=== PATIENT | male | born 1985 | race Caucasian/White ===

== ENCOUNTER 2018-06-21 15:26 | Emergency (ER) | payer SELFPAY ==
[2018-06-21] MEDS ORDERED: Lidocaine 1% with EPINEPHrine 1:100,000 10 ML MDV INJECT ONE (15:57)
[2018-06-21] MEDS ORDERED: cefTRIAXone 1,000 MG in Lidocaine 1% 4 ML IM ONE (15:57)
--- NOTE | 2018-06-21 15:57 | EDM.PDOC ---
ED HPI GENERAL MEDICAL PROBLEM - General Chief Complaint: Skin Complaint Stated Complaint: POSSIBLE STAPH INFECTION Time Seen by Provider: 06/21/18 15:56 Source of Information: Reports: Patient - History of Present Illness INITIAL COMMENTS - FREE TEXT/NARRATIVE: HISTORY AND PHYSICAL: History of present illness: []Patient presents with a small abscess in his left axilla approximately 3 cm x 1 cm nontender no fever nausea vomiting chills sweats Review of systems: As per history of present illness and below otherwise all systems reviewed and negative. Past medical history: As per history of present illness and as reviewed below otherwise noncontributory. Surgical history: As per history of present illness and as reviewed below otherwise noncontributory. Social history: No reported history of drug or alcohol abuse. Family history: As per history of present illness and as reviewed below otherwise noncontributory. Physical exam: HEENT: Atraumatic, normocephalic, pupils reactive, negative for conjunctival pallor or scleral icterus, mucous membranes moist, throat clear, neck supple, nontender, trachea midline. Lungs: Clear to auscultation, breath sounds equal bilaterally, chest nontender. Heart: S1S2, regular, negative for clicks, rubs, or JVD. Abdomen: Soft, nondistended, nontender. Negative for masses or hepatosplenomegaly. Negative for costovertebral tenderness. Pelvis: Stable nontender. Genitourinary: Deferred. Rectal: Deferred. Extremities: Atraumatic, negative for cords or calf pain. Neurovascular unremarkable. Neuro: Awake, alert, oriented. Cranial nerves II through XII unremarkable. Cerebellum unremarkable. Motor and sensory unremarkable throughout. Exam nonfocal. Diagnostics: [Wound culture ] Therapeutics: [ gram Rocephin lidocaine incision and drainage-copious purulent drainage obtained are culture Wound prepped and cleanse Drainage with 11 blade Packed after flushing with normal saline , Order inch iodoform Recheck 48 hours Bactrim [place] ] Impression: [ abscess left axilla incision and drainage ] Definitive disposition and diagnosis as appropriate pending reevaluation and review of above. left armpit Pain Score (Numeric/FACES): 8 - Related Data Allergies Allergy/AdvReac Type Severity Reaction Status Date / Time No Known Allergies Allergy Verified 06/21/18 16:00 Home Meds: Home Meds . [No Known Home Meds] 06/21/18 [History] ED ROS GENERAL - Review of Systems Review Of Systems: See Below ED EXAM, SKIN/RASH Exam: See Below Course - Vital Signs Last Recorded V/S: Last Vital Signs Temp 96.8 F 06/21/18 16:01 Pulse 78 06/21/18 16:01 Resp 18 06/21/18 16:01 BP 119/70 06/21/18 16:01 Pulse Ox 98 06/21/18 16:01 - Orders/Labs/Meds Orders: Active Orders 24 hr Category Date Time Status CULTURE WOUND [RM] Stat Lab 06/21/18 16:22 Ordered Meds: Medications Discontinued Medications Generic Name Dose Route Start Last Admin Trade Name Freq PRN Reason Stop Dose Admin Hydrocodone Bitart/Acetaminophen 1 tab 06/21/18 16:22 [place] 325-5 Mg PO 06/21/18 16:23 ONETIME ONE Ceftriaxone Sodium 1,000 mg/ 4 mls @ 4 mls/sec 06/21/18 15:57 Lidocaine HCl IM 06/21/18 15:58 ONETIME ONE Lidocaine/Epinephrine 10 ml 06/21/18 15:57 Xylocaine 1% With Epinephrine 1:100,000 INJECT 06/21/18 15:58 ONETIME ONE Lidocaine/Epinephrine Confirm 06/21/18 16:07 Xylocaine 1% With Epinephrine 1:100,000 Administered 06/21/18 16:08 Dose 20 ml .ROUTE .STK-MED ONE Departure - Departure Time of Disposition: 16:25 Disposition: Home, Self-Care 01 Condition: Good Clinical Impression: Abscess, Cellulitis - Discharge Information Referrals: PCP,None [Primary Care Provider] - Forms: ED Department Discharge Additional Instructions: Medication as prescribed Return if symptoms persist or worsen Return to ER for recheck and wound packing in 48 hours The following information is given to patients seen in the emergency department who are being discharged to home. This information is to outline your options for follow-up care. We provide all patients seen in our emergency department with a follow-up referral. The need for follow-up, as well as the timing and circumstances, are variable depending upon the specifics of your emergency department visit. If you don't have a primary care physician on staff, we will provide you with a referral. We always advise you to contact your personal physician following an emergency department visit to inform them of the circumstance of the visit and for follow-up with them and/or the need for any referrals to a consulting specialist. The emergency department will also refer you to a specialist when appropriate. This referral assures that you have the opportunity for follow-up care with a specialist. All of these measure are taken in an effort to provide you with optimal care, which includes your follow-up. Under all circumstances we always encourage you to contact your private physician who remains a resource for coordinating your care. When calling for follow-up care, please make the office aware that this follow-up is from your recent emergency room visit. If for any reason you are refused follow-up, please contact the [facility] emergency department at and asked to speak to the emergency department charge nurse. - My Orders Last 24 Hours: My Active Orders 06/21/18 16:22 CULTURE WOUND [RM] Stat - Assessment/Plan Last 24 Hours: My Active Orders 06/21/18 16:22 CULTURE WOUND [RM] Stat
[2018-06-21] MEDS ORDERED: Lidocaine 1% with EPINEPHrine 1:100,000 20 ML MDV ONE (16:07)
[2018-06-21] MEDS ORDERED: Acetaminophen/HYDROcodone 325-5 MG Tab PO ONE (16:22)
[2018-06-21] MEDS ORDERED: Lidocaine 1% with EPINEPHrine 1:100,000 20 ML MDV INJECT ONE (16:25)
== END 2018-06-21 16:49 | disposition home or self-care (01) ==
LOC: MW.ED 15:26
DX: L02.412 Cutaneous abscess of left axilla (principal); L03.112 Cellulitis of left axilla
CPT/HCPCS: 10060; 87070; 87077; 87186; 96372; 99283; A9270; J0696; J2001

== ENCOUNTER 2018-06-22 13:41 | Emergency (ER) | payer SELFPAY ==
--- NOTE | 2018-06-22 13:43 | EDM.PDOC ---
ED HPI GENERAL MEDICAL PROBLEM - General Stated Complaint: BANDAGE CAME UNDONE Time Seen by Provider: 06/22/18 13:43 Source of Information: Reports: Patient History Limitations: Reports: No Limitations - History of Present Illness INITIAL COMMENTS - FREE TEXT/NARRATIVE: HISTORY AND PHYSICAL: History of present illness: Review of systems: As per history of present illness and below otherwise all systems reviewed and negative. Past medical history: As per history of present illness and as reviewed below otherwise noncontributory. Surgical history: As per history of present illness and as reviewed below otherwise noncontributory. Social history: No reported history of drug or alcohol abuse. Family history: As per history of present illness and as reviewed below otherwise noncontributory. Physical exam: General: HEENT: Atraumatic, normocephalic, pupils equal and reactive bilaterally, negative for conjunctival pallor or scleral icterus, mucous membranes moist, throat clear, neck supple, nontender, trachea midline. No drooling or trismus noted. No meningeal signs Lungs: Clear to auscultation, breath sounds equal bilaterally, chest nontender. Heart: S1S2, regular rate and rhythm without overt murmur Abdomen: Soft, nondistended, nontender. Negative for masses or hepatosplenomegaly. Negative for costovertebral tenderness. Pelvis: Stable nontender. Genitourinary: Deferred. Rectal: Deferred. Skin: Intact, warm, dry. No lesions or rashes noted. Extremities: Atraumatic, negative for cords or calf pain. Neurovascular unremarkable. Neuro: Awake, alert, oriented. Cranial nerves II through XII unremarkable. Cerebellum unremarkable. Motor and sensory unremarkable throughout. Exam nonfocal. Notes: Diagnostics: Therapeutics: Prescription: Impression: Plan: Definitive disposition and diagnosis as appropriate pending reevaluation and review of above. - Related Data Allergies Allergy/AdvReac Type Severity Reaction Status Date / Time No Known Allergies Allergy Verified 06/21/18 16:00 Home Meds: Home Meds . [No Known Home Meds] 06/21/18 [History] Past Medical History - Past Health History Medical/Surgical History: Denies Medical/Surgical History Social & Family History - Family History Family Medical History: Noncontributory - Caffeine Use Caffeine Use: Reports: Coffee, Energy Drinks, Soda, Tea Departure - Discharge Information Referrals: PCP,None [Primary Care Provider] -
--- NOTE | 2018-06-22 13:54 | EDM.PDOC ---
ED HPI GENERAL MEDICAL PROBLEM - General Chief Complaint: Skin Complaint Stated Complaint: BANDAGE CAME UNDONE Time Seen by Provider: 06/22/18 13:43 - History of Present Illness INITIAL COMMENTS - FREE TEXT/NARRATIVE: HISTORY AND PHYSICAL: History of present illness: Patient is a 33-year-old male presents with cervical wound checked for incision and drainage of a left axillary abscess. He is not secured his antibiotics as of yet but is working on. He is here now because the occlusive bandage that was covering it became dislodged although the packing remains intact and he is scheduled for reevaluation removal within 24 hours. He denies any other concern Review of systems: As per history of present illness and below otherwise all systems reviewed and negative. Past medical history: As per history of present illness and as reviewed below otherwise noncontributory. Surgical history: As per history of present illness and as reviewed below otherwise noncontributory. Social history: No reported history of drug or alcohol abuse. Family history: As per history of present illness and as reviewed below otherwise noncontributory. Physical exam: HEENT: Atraumatic, normocephalic, pupils reactive, negative for conjunctival pallor or scleral icterus, mucous membranes moist, throat clear, neck supple, nontender, trachea midline. Lungs: Clear to auscultation, breath sounds equal bilaterally, chest nontender. Heart: S1S2, regular, negative for clicks, rubs, or JVD. Abdomen: Soft, nondistended, nontender. Negative for masses or hepatosplenomegaly. Negative for costovertebral tenderness. Pelvis: Stable nontender. Genitourinary: Deferred. Rectal: Deferred. Extremities: Left axillary wound is packed with iodoform with some surrounding erythema minimal indurationsignificant discharge. Neuro: Awake, alert, oriented. Cranial nerves II through XII unremarkable. Cerebellum unremarkable. Motor and sensory unremarkable throughout. Exam nonfocal. Diagnostics: None Therapeutics: Social service consult Impression: #1 wound check status post incision and drainage left axillary abscess with packing Definitive disposition and diagnosis as appropriate pending reevaluation and review of above. - Related Data Allergies Allergy/AdvReac Type Severity Reaction Status Date / Time No Known Allergies Allergy Verified 06/22/18 13:49 Home Meds: Home Meds . [No Known Home Meds] 06/21/18 [History] Past Medical History - Past Health History Medical/Surgical History: Denies Medical/Surgical History Social & Family History - Family History Family Medical History: Noncontributory - Caffeine Use Caffeine Use: Reports: Coffee, Energy Drinks, Soda, Tea ED ROS GENERAL - Review of Systems Review Of Systems: ROS reveals no pertinent complaints other than HPI. ED EXAM, GENERAL - Physical Exam Exam: See Below (dictation) Departure - Departure Time of Disposition: 13:53 Disposition: Home, Self-Care 01 Condition: Good Clinical Impression: Wound check, abscess, Medical non-compliance - Discharge Information *PRESCRIPTION DRUG MONITORING PROGRAM REVIEWED*: Not Applicable *COPY OF PRESCRIPTION DRUG MONITORING REPORT IN PATIENT TILA: Not Applicable Referrals: PCP,None [Primary Care Provider] - Additional Instructions: The following information is given to patients seen in the emergency department who are being discharged to home. This information is to outline your options for follow-up care. We provide all patients seen in our emergency department with a follow-up referral. The need for follow-up, as well as the timing and circumstances, are variable depending upon the specifics of your emergency department visit. If you don't have a primary care physician on staff, we will provide you with a referral. We always advise you to contact your personal physician following an emergency department visit to inform them of the circumstance of the visit and for follow-up with them and/or the need for any referrals to a consulting specialist. The emergency department will also refer you to a specialist when appropriate. This referral assures that you have the opportunity for followup care with a specialist. All of these measure are taken in an effort to provide you with optimal care, which includes your followup. Under all circumstances we always encourage you to contact your private physician who remains a resource for coordinating your care. When calling for followup care, please make the office aware that this follow-up is from your recent emergency room visit. If for any reason you are refused follow-up, please contact the [facility] emergency department at and asked to speak to the emergency department charge nurse. Medicines as prescribed follow-up in 24 hours as directed for packing removal and reevaluation and return as needed as discussed
== END 2018-06-22 14:30 | disposition home or self-care (01) ==
LOC: MW.ED 13:41
DX: L02.412 Cutaneous abscess of left axilla (principal); Z91.14 Patient's other noncompliance with medication regimen
CPT/HCPCS: 99282

== ENCOUNTER 2020-12-18 00:50 | Emergency (ER) | payer SELFPAY ==
[2020-12-18] MEDS ORDERED: Diphtheria,Pertussis(Acell),Tetanus Vaccine 0.5 ML SDV IM ONE (00:58)
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
[2020-12-18] MEDS ORDERED: LORazepam 2 MG/ML SDV IM ONE (01:08)
[2020-12-18 01:43] LABS: BLOOD UREA NITROGEN,BUN 15 mg/dL (7.0-18.0); CARBON DIOXIDE,CO2 21.6 mmol/L (21.0-32.0); CHLORIDE,CL 104 mmol/L (98-107); GLUCOSE RANDOM 122 mg/dL (74-106); POTASSIUM,K 3.9 mmol/L (3.5-5.1); SODIUM,NA 143 mmol/L (136-148)
--- NOTE | 2020-12-18 01:51 | CT ---
Indication: Trauma, pain Technique: Nonenhanced axial CT imaging through the head. Sagittal and coronal reconstructions are provided. Comparison: None Findings: There is no intracranial hemorrhage, edema, or mass effect. There is normal attenuation of the brain parenchyma. The ventricles are normal in size. The basal cisterns are patent. The calvarium is intact. The visualized paranasal sinuses and mastoid air cells are aerated. Impression: No acute intracranial process. Please note that all CT scans at this facility use dose modulation, iterative reconstruction, and/or weight-based dosing when appropriate to reduce radiation dose to as low as reasonably achievable. Dictated by Erika Stevenson MD @ Dec 18 2020 1:43AM Signed by Dr. Erika Stevenson @ Dec 18 2020 1:50AM
--- NOTE | 2020-12-18 01:59 | CT ---
Indication: Trauma, pain Technique: Nonenhanced axial CT imaging through the cervical spine. Sagittal and coronal reconstructions are provided. Comparison: None Findings: The cervical vertebral bodies are normal in height. No fracture is demonstrated. There is normal spinal alignment. The atlantoaxial and atlantooccipital relationships are maintained. There is no prevertebral edema. There is no significant degenerative disc height loss or appreciable spinal stenosis. Mild neural foraminal stenosis is present at C4-5 bilaterally and at C5-6 on the right. Impression: 1. No acute fracture or traumatic malalignment. 2. Mild degenerative changes, as above. Please note that all CT scans at this facility use dose modulation, iterative reconstruction, and/or weight-based dosing when appropriate to reduce radiation dose to as low as reasonably achievable. Dictated by Erika Stevenson MD @ Dec 18 2020 1:57AM Signed by Dr. Erika Stevenson @ Dec 18 2020 1:57AM
--- NOTE | 2020-12-18 02:06 | CT ---
Indication: Trauma, pain Technique: Nonenhanced axial CT imaging through the pelvis, with sagittal and coronal reconstructions. Comparison: None Findings: There is no displaced pelvic fracture. The proximal femora are intact. The femoroacetabular joints are normally located. The pelvic musculature is unremarkable. There is no pelvic hematoma. The urinary bladder is intact. There is a direct right inguinal hernia containing a loop small bowel. The hernia defect measures 2 x 2.5 cm transverse and craniocaudal dimensions. The hernia sac measures up to 3 x 6 x 7.5 cm (AP x transverse x CC). The herniated bowel segment is normal in caliber. The visualized intra-abdominal small bowel is nondistended. Impression: 1. No evidence of acute pelvic fracture. 2. Small bowel containing right direct inguinal hernia, with dimensions above. No evidence of hernia strangulation. Please note that all CT scans at this facility use dose modulation, iterative reconstruction, and/or weight-based dosing when appropriate to reduce radiation dose to as low as reasonably achievable. Dictated by Erika Stevenson MD @ Dec 18 2020 2:04AM Signed by Dr. Erika Stevenson @ Dec 18 2020 2:04AM
[2020-12-18] MEDS ORDERED: Diphtheria,Pertussis(Acell),Tetanus Vaccine 0.5 ML Syringe ONE (02:14)
--- NOTE | 2020-12-18 02:18 | CR ---
Indication: Left foot pain Technique: Three views of the left foot Comparison: None Findings: There is no fracture or joint dislocation. The soft tissues of the foot are grossly unremarkable. Impression: No acute abnormality. Dictated by Erika Stevenson MD @ Dec 18 2020 2:14AM Signed by Dr. Erika Stevenson @ Dec 18 2020 2:16AM
[2020-12-18] MEDS ORDERED: Sodium Chloride 0.9% 10 ML Syringe FLUSH PRN (02:22)
[2020-12-18] MEDS ORDERED: Sodium Chloride 0.9% 2.5 ML Syringe FLUSH PRN (02:22)
[2020-12-18] MEDS ORDERED: Sodium Chloride 0.9% 3,000 ML IV ONE (02:22)
[2020-12-18] MEDS ORDERED: cefTRIAXone 1 GM in Premix Bag 1 BAG IV ONE (02:26)
[2020-12-18] MEDS ORDERED: Bacitracin Oint 1 GM U/D Packet TOP ONE (03:31)
--- NOTE | 2020-12-18 03:48 | CR ---
INDICATION: Chest pain TECHNIQUE: Portable upright AP view of the chest COMPARISON: None FINDINGS: The lungs are clear. A 5 mm calcific density nodule is noted in the left lung base. There is no sizable pleural effusion or pneumothorax. The cardiomediastinal silhouette is normal. The visualized osseous structures are unremarkable. IMPRESSION: No acute intrathoracic process. Dictated by Erika Stevenson MD @ Dec 18 2020 3:48AM Signed by Dr. Erika Stevenson @ Dec 18 2020 3:48AM
== END 2020-12-18 04:25 ==
LOC: MW.ED 00:50
DX: S90.812A Abrasion, left foot, initial encounter (principal); T33.822A Superficial frostbite of left foot, initial encounter; T33.821A Superficial frostbite of right foot, initial encounter; E87.2 Acidosis; D72.829 Elevated white blood cell count, unspecified; F10.129 Alcohol abuse with intoxication, unspecified; F15.90 Other stimulant use, unspecified, uncomplicated; R20.1 Hypoesthesia of skin; M25.075 Hemarthrosis, left foot; Z23 Encounter for immunization; Y90.6 Blood alcohol level of 120-199 mg/100 ml; W22.8XXA Striking against or struck by other objects, initial encounter; Y92.009 Unspecified place in unspecified non-institutional (private) residence as the place of occurrence of the external cause
CPT/HCPCS: 36415; 70450; 71045; 72125; 72192; 73630; 80053; 80179; 80305; 81001; 82550; 83605; 84484; 85025; 85730; 87040; 87086; 90471; 90715; 96365; 99285; J0696; J7030

== ENCOUNTER 2020-12-20 19:51 | Emergency (ER) | payer SELFPAY ==
--- NOTE | 2020-12-20 20:38 | EDM.PDOC ---
ED HPI GENERAL MEDICAL PROBLEM - General Chief Complaint: Skin Complaint Stated Complaint: LT FOOT INJURY Time Seen by Provider: 12/20/20 20:24 - History of Present Illness INITIAL COMMENTS - FREE TEXT/NARRATIVE: Patient is an otherwise well 35-year-old male presenting for evaluation of left foot frostbite. Patient was initially evaluated 5 nights ago for frostbite of the left foot that was sustained while intoxicated. He had significant blistering and blisters on the heel and sole were aspirated with a needle. He has been in [facility] but was recently released these have reaccumulated. No fevers no severe pain. He presents for reevaluation of his wound and instructions for ongoing care. left foot Pain Score (Numeric/FACES): 6 - Related Data Allergies Allergy/AdvReac Type Severity Reaction Status Date / Time No Known Allergies Allergy Verified 12/20/20 20:20 Home Meds: Home Meds . [No Known Home Meds] 06/21/18 [History] Past Medical History - Past Health History Medical/Surgical History: Denies Medical/Surgical History HEENT History: Reports: None Cardiovascular History: Reports: None Respiratory History: Reports: None Gastrointestinal History: Reports: None Genitourinary History: Reports: None Musculoskeletal History: Reports: None Neurological History: Reports: None Psychiatric History: Reports: None Endocrine/Metabolic History: Reports: None Insulin Pump Model and School Age Program Teacher: None Hematologic History: Reports: None Immunologic History: Reports: None Oncologic (Cancer) History: Reports: None Dermatologic History: Reports: None - Infectious Disease History Infectious Disease History: Reports: None - Past Surgical History Head Surgeries/Procedures: Reports: None HEENT Surgical History: Reports: None Cardiovascular Surgical History: Reports: None Respiratory Surgical History: Reports: None GI Surgical History: Reports: None Male Surgical History: Reports: None Endocrine Surgical History: Reports: None Neurological Surgical History: Reports: None Musculoskeletal Surgical History: Reports: None Oncologic Surgical History: Reports: None Dermatological Surgical History: Reports: None Social & Family History - Family History Family Medical History: No Pertinent Family History - Caffeine Use Caffeine Use: Reports: Coffee, Energy Drinks, Soda, Tea - Recreational Drug Use Recreational Drug Use: Yes Drug Use in Last 12 Months: Yes Recreational Drug Type: Reports: Methamphetamine ED ROS GENERAL - Review of Systems Review Of Systems: See Below Free Text/Narrative/Comment: General: No fever. Skin: Per HPI Musculoskeletal: No myalgias/arthralgias. Neurologic: No headache. ED EXAM, SKIN/RASH Exam: See Below Text/Narrative:: General Appearance: No acute distress, appears comfortable Skin: 2+ left DP pulse. Patient is significant blistering over the dorsal aspect of the third through fourth digits covering the toes he also has 2 large blisters over the ball and heel of his foot they are filled with a serous fluid there is no overlying erythema there is no warmth he has intact sensation he has good capillary refill he has no findings of necrosis. HEENT: Normocephalic/atraumatic, sclera anicteric, mucous membranes moist Neck: Normal range of motion Musculoskeletal: No edema or tenderness Neurologic: Awake, alert, no obvious deficits, moving all extremities Psychiatric: Appropriate, cooperative Course - Vital Signs Last Recorded V/S: Last Vital Signs Temp 97.5 F 12/20/20 20:20 Pulse 96 12/20/20 20:20 Resp 18 12/20/20 20:20 BP 117/80 12/20/20 20:20 Pulse Ox 97 12/20/20 20:20 Departure - Departure Time of Disposition: 21:46 Disposition: Home, Self-Care 01 Condition: Good Clinical Impression: Frostbite - Discharge Information *PRESCRIPTION DRUG MONITORING PROGRAM REVIEWED*: Not Applicable *COPY OF PRESCRIPTION DRUG MONITORING REPORT IN PATIENT TILA: Not Applicable Instructions: Frostbite, [id number] Forms: ED Department Discharge Additional Instructions: Please keep the area dry. Please change the dressings once daily as we discussed and as I demonstrated. Please be sure to follow-up next week as scheduled. The following information is given to patients seen in the emergency department who are being discharged to home. This information is to outline your options for follow-up care. We provide all patients seen in our emergency department with a follow-up referral. The need for follow-up, as well as the timing and circumstances, are variable depending upon the specifics of your emergency department visit. If you don't have a primary care physician on staff, we will provide you with a referral. We always advise you to contact your personal physician following an emergency department visit to inform them of the circumstance of the visit and for follow-up with them and/or the need for any referrals to a consulting specialist. The emergency department will also refer you to a specialist when appropriate. This referral assures that you have the opportunity for follow-up care with a specialist. All of these measure are taken in an effort to provide you with opti mal care, which includes your follow-up. Under all circumstances we always encourage you to contact your private physician who remains a resource for coordinating your care. When calling for follow-up care, please make the office aware that this follow-up is from your recent emergency room visit. If for any reason you are refused follow-up, please contact the [facility] Emergency Department at and asked to speak to the emergency department charge nurse. Sepsis Event Note (ED) - Evaluation Sepsis Screening Result: No Definite Risk - Focused Exam Vital Signs: Vital Signs Temp Pulse Resp BP Pulse Ox 12/20/20 20:20 97.5 F 96 18 117/80 97 - Assessment/Plan Assessment:: 35-year-old male with left foot frostbite progressing as expected. There is no findings of overlying infection. Given the significant blistering on the bottom of his foot and the fact that they are already spontaneously draining we will incise and drain these blisters to prevent spontaneous rupture. Dressing will be changed. Using scrupulous sterile technique I drained the plantar blisters with an 18- gauge needle. His great toe had an avulsion of his nail this occurred in an unrelated incident while he was intoxicated that same night. Evaluation of this demonstrated a healthy appearing nail bed with some changes of chronic wetness on the skin surrounding this. This was dressed with sterile petroleum gauze and Kerlix was used to wrap the toe and foot this was followed with Anand around the foot to provide gentle compression on reassessment the toes were warm and well- perfused. Strict return precautions were discussed understood wound care was reviewed.
== END 2020-12-20 22:26 | disposition home or self-care (01) ==
LOC: MW.ED 19:51
DX: T33.832A Superficial frostbite of left toe(s), initial encounter (principal); T33.822A Superficial frostbite of left foot, initial encounter; X31.XXXA Exposure to excessive natural cold, initial encounter
CPT/HCPCS: 99282; 99283

== ENCOUNTER 2021-03-12 18:40 | Emergency (ER) | payer SELFPAY | END 2021-03-12 19:17 | disposition left against medical advice (07) | LOC: MW.ED 18:40 | DX: Z53.21 Procedure and treatment not carried out due to patient leaving prior to being seen by health care provider (principal) ==

== ENCOUNTER 2022-01-03 06:22 | Emergency (ER) | payer MEDICAID | END 2022-01-03 06:38 | disposition home or self-care (01) | LOC: MW.ED 06:22 | DX: H01.004 Unspecified blepharitis left upper eyelid (principal) | CPT/HCPCS: 99283 ==

== ENCOUNTER 2022-07-18 17:18 | Emergency (ER) | payer MEDICAID | END 2022-07-18 18:00 | disposition left against medical advice (07) | LOC: MW.ED 17:18 | DX: Z53.21 Procedure and treatment not carried out due to patient leaving prior to being seen by health care provider (principal) ==